=== PATIENT | female | born 1985 | race Two or more races ===

== ENCOUNTER 2018-10-14 12:31 | Emergency (ER) | payer OTHER, MEDICAID ==
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
[2018-10-14 14:47] LABS: PLATELET COUNT 206 10^3/uL (150-400)
[2018-10-14] MEDS ORDERED: ACETAMINOPHEN 500 MG TAB PO ONE (14:47)
[2018-10-14 16:11] VITALS: BP 119/62
== END 2018-10-14 16:09 | disposition home or self-care (01) ==
DX: S16.1XXA Strain of muscle, fascia and tendon at neck level, initial encounter (principal); S39.012A Strain of muscle, fascia and tendon of lower back, initial encounter; O20.8 Other hemorrhage in early pregnancy; Z3A.12 12 weeks gestation of pregnancy; V47.5XXA Car driver injured in collision with fixed or stationary object in traffic accident, initial encounter; Y92.410 Unspecified street and highway as the place of occurrence of the external cause; Y99.9 Unspecified external cause status; Y93.9 Activity, unspecified